=== PATIENT | female | born 1955 | race Caucasian/White ===

== ENCOUNTER 2017-10-12 13:03 | Emergency (ER) | payer MEDICAID ==
[~2017-10-12] VITALS: Ht 152.4 cm; Wt 122.5 kg
[2017-10-12 13:15] VITALS: Ht 152.4 cm; Wt 122.5 kg
[2017-10-12 15:50] VITALS: BP 151/88
== END 2017-10-12 15:50 | disposition home or self-care (01) ==
LOC: ED 13:03
DX: S81.011A Laceration without foreign body, right knee, initial encounter (principal); I10 Essential (primary) hypertension; E11.9 Type 2 diabetes mellitus without complications; W19.XXXA Unspecified fall, initial encounter; Y93.89 Activity, other specified; Y92.89 Other specified places as the place of occurrence of the external cause; Y99.8 Other external cause status
CPT/HCPCS: 90715; J2001; J2270; Q0092; Q0162

== ENCOUNTER 2017-10-27 17:53 | Emergency (ER) | payer MEDICAID ==
[~2017-10-27] VITALS: Ht 157.5 cm; Wt 122.9 kg
[2017-10-27 17:57] VITALS: BP 175/89; Ht 157.5 cm; Wt 122.9 kg
== END 2017-10-27 19:02 | disposition home or self-care (01) ==
LOC: ED 17:53
DX: S81.011D Laceration without foreign body, right knee, subsequent encounter (principal); I10 Essential (primary) hypertension; E11.9 Type 2 diabetes mellitus without complications; X58.XXXD Exposure to other specified factors, subsequent encounter
CPT/HCPCS: 82962; J3490

== ENCOUNTER 2017-10-30 19:50 | Emergency (ER) | payer MEDICAID ==
[~2017-10-30] VITALS: Ht 167.6 cm; Wt 120.2 kg
[2017-10-30 20:13] VITALS: Ht 167.6 cm; Wt 120.2 kg
[2017-10-30 21:12] VITALS: BP 171/69
== END 2017-10-30 21:12 | disposition home or self-care (01) ==
LOC: ED 19:50
DX: S81.011D Laceration without foreign body, right knee, subsequent encounter (principal); I10 Essential (primary) hypertension; E11.9 Type 2 diabetes mellitus without complications; W19.XXXD Unspecified fall, subsequent encounter